=== PATIENT | male | born 1955 | race Caucasian/White ===

== ENCOUNTER 2021-08-22 08:18 | Emergency (ER) | payer MEDICARE ==
[~2021-08-22] VITALS: Ht 170.2 cm; Wt 77.1 kg
[2021-08-22 09:05] LABS: BASOPHIL 0.4 % (0-2); EOSINOPHIL 0 % (0-7); HCT 51.7 % (42.0-52.0); HGB 17.1 g/dl (13.2-18.0); LYMPHOCYTE 2.1 % (15-48); MCH 29.1 pg (25.0-31.0); MCHC 33.1 g/dL (32.0-36.0); MCV 88.1 fL (78.0-100.0); MONOCYTE 3.3 % (0-12); MPV 10.5 fL (6.0-9.5); NEUTROPHIL 91.5 % (41-80); NRBC 0.1; PLT 248 K/uL (150-400); RBC 5.87 M/uL (4.70-6.00); RDW 19.2 % (11.5-14.0)
[2021-08-22 09:08] LABS: WBC 47.1 K/uL (4.0-10.5)
[2021-08-22 09:19] LABS: BILIRUBIN - TOTAL 0.4 mg/dL (0.2-1.0); CREATININE 0.75 mg/dL (0.67-1.17); GLOBULIN (CALCULATION) 3.4 g/dL; POTASSIUM 4.8 mmol/L (3.5-5.1); TOTAL PROTEIN 6.4 g/dL (6.4-8.2)
[2021-08-22 09:36] LABS: CORONAVIRUS 2019 SARS-COV-2 NEGATIVE (NEGATIVE); INFLUENZA A NAA NEGATIVE (NEGATIVE)
[2021-08-22 09:48] LABS: LACTIC ACID 5.3 mmol/L (0.4-1.9)
[2021-08-22 10:47] LABS: BILIRUBIN NEGATIVE (NEGATIVE); BLOOD 1+ Ery/uL (NEGATIVE); CLARITY CLEAR (CLEAR); COLOR YELLOW (YELLOW); GLUCOSE (U) 2+ mg/dL (NORMAL); LEUKOCYTES NEGATIVE Leu/uL (NEGATIVE); NITRITE NEGATIVE (NEGATIVE); PROTEIN 1+ mg/dL (NEGATIVE); SPECIFIC GRAVITY >=1.030 (1.001-1.030); UROBILINOGEN 0.2 mg/dL (0.2-1.0); pH 5.5 (5.0-9.0)
[2021-08-22 10:57] LABS: BACTERIA 1+
[2021-08-22 21:15] LABS: ALBUMIN 1.9 g/dL (3.4-5.0); BILIRUBIN - TOTAL 0.5 mg/dL (0.2-1.0); GLOBULIN (CALCULATION) 2.6 g/dL; POTASSIUM 5.4 mmol/L (3.5-5.1); TOTAL PROTEIN 4.5 g/dL (6.4-8.2)
[2021-08-23 02:16] LABS: BASOPHIL 0.3 % (0-2); EOSINOPHIL 0 % (0-7); HCT 47.5 % (42.0-52.0); HGB 15.4 g/dl (13.2-18.0); LYMPHOCYTE 0.4 % (15-48); MCHC 32.4 g/dL (32.0-36.0); MCV 89.5 fL (78.0-100.0); MONOCYTE 2.8 % (0-12); MPV 11.2 fL (6.0-9.5); NRBC 0; PLT 190 K/uL (150-400); RBC 5.31 M/uL (4.70-6.00); RDW 18.2 % (11.5-14.0)
[2021-08-23 02:19] LABS: NEUTROPHIL 94.2 % (41-80); WBC 53.7 K/uL (4.0-10.5)
[2021-08-23 02:30] LABS: ALBUMIN 1.8 g/dL (3.4-5.0); BILIRUBIN - TOTAL 0.3 mg/dL (0.2-1.0); BUN/CREAT RATIO (CALC) 45.9 RATIO; CREATININE 0.98 mg/dL (0.67-1.17); GLOBULIN (CALCULATION) 2.7 g/dL; MAGNESIUM 1.6 mg/dL (1.8-2.4); POTASSIUM 4.9 mmol/L (3.5-5.1); TOTAL PROTEIN 4.5 g/dL (6.4-8.2)
== END 2021-08-23 08:53 | disposition other institution (70) ==
LOC: FER 08:18
PROVIDERS: Emergency Medicine; Emergency Medicine Emergency Medical Services; Internal Medicine
DX: A41.9 Sepsis, unspecified organism (principal); R65.20 Severe sepsis without septic shock; J96.01 Acute respiratory failure with hypoxia; Z20.822 Contact with and (suspected) exposure to COVID-19
CPT/HCPCS: 31500; 36415; 36600; 71045; 71250; 80053; 81001; 82803; 83605; 83735; 83880; 84145; 84484; 85025; 87040; 87070; 87205; 93005; 94640; 96365; 96366; 96367; 96368; 96372; 96375; 96376; C9113; J1100; J1650; J2250; J2370; J2543; J2704; J3010; J3370; J3475; J7030; J7040; J7050; U0002